=== PATIENT | female | born 1940 | race Caucasian/White ===

== ENCOUNTER 2019-06-16 10:03 | Emergency (ER) | payer OTHER ==
[2019-06-16 10:48] LABS: Absolute Lymphocytes (CBC) 1.2 K/uL (0.7-4.9); Basophils % 1.3 % (0-1.3); Hematocrit 33.7 % (36.0-45.0); Lymphocytes % 21.2 % (15.3-44.8); MPV 7.3 fL (7.6-11.3); RBC Red Blood Cell Count 3.71 M/uL (3.86-4.86)
[2019-06-16 11:05] LABS: Albumin 3.4 g/dL (3.4-5.0); Bilirubin Total 0.5 mg/dL (0.2-1.0); Potassium 3.9 mmol/L (3.5-5.1); Protein, Total 6.8 g/dL (6.4-8.2); Uric Acid 7.5 mg/dL (2.6-6.0)
--- NOTE | 2019-06-16 11:50 | RAD REPORT ---
EXAM DESCRIPTION: RAD - Foot Left 3 View - 06/16/2019 10:47 am CLINICAL HISTORY: Left foot pain and swelling, pain primarily first toe COMPARISON: None. FINDINGS: No fracture, dislocation or periosteal reaction. No destructive bone process. 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 There is joint space narrowing at this joint as well as large lateral marginal spurs. No erosive component. Soft tissues around the first MTP joint a re mildly prominent. The second- fifth MTP joints and the IP joint show no significant degenerative change. There is mild degenerative change at the cuneiform bone articulations with the second- fifth metatarsals. Moderate- sized plantar spur is present. There is small spurring at the Achilles attachment. Patient has soft t issue swelling over the dorsum of the foot. No air or foreign body in the soft tissues. 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 Mild degenerative changes elsewhere in the foot. Swelling over the dorsum of the foot with no air or foreign body.
[2019-06-16] MEDS ORDERED: dexAMETHasone 10 MG/ML VIAL ONE (12:58)
--- NOTE | 2019-06-16 13:02 | EDPHYS ---
Physician Documentation [facility] Name: Karla Saunders Age: 78 yrs Sex: Female : 1940 Arrival Date: 06/16/2019 Time: 10:06 Bed 20 Private MD: ED Physician Taz Bush HPI: 06/16 10:23 This 78 yrs old Female presents to ER via Ambulatory with complaints of Toe jmm Pain. 10:23 The patient presents with pain, that is acute. Onset: The symptoms/episode jmm began/occurred gradually, 1 week(s) ago. Modifying factors: The symptoms are alleviated by ice packs, the symptoms are aggravated by movement. This is a 78 year old female with a history of htn that presents to the ED with complaints of left foot pain. Patient states pain began after her massaged her foot. Patient unaware of any other possible injury. Patient denies fever or chills. . Historical: - Allergies: 10:17 No Known Allergies; tw2 - Home Meds: 10:17 hydrochlorothiazide 12.5 mg Oral cap 1 cap once daily [Active]; pantoprazole 40 mg oral tw2 TbEC 1 tab once daily [Active]; lisinopril 40 mg Oral tab 1 tab once daily [Active]; metoprolol tartrate 100 mg Oral tab 1 tab once daily [Active]; - PMHx: 10:17 Hypertension; tw2 - Immunization history:: Adult Immunizations. - Social history:: Smoking status: . - Ebola Screening: : Patient denies travel to an Ebola-affected area in the 21 days before illness onset. ROS: 10:23 Constitutional: Negative for fever, chills, and weight loss, Cardiovascular: Negative jmm for chest pain, palpitations, and edema, Respiratory: Negative for shortness of breath, cough, wheezing, and pleuritic chest pain. 10:23 MS/extremity: Positive for injury or acute deformity, pain. 10:23 All other systems are negative. Exam: 10:23 Constitutional: This is a well developed, well nourished patient who is awake, alert, jmm and in no acute distress. Head/Face: atraumatic. Eyes: EOMI, no conjunctival erythema appreciated ENT: Moist Mucus Membranes Neck: Trachea midline, Supple Chest/axilla: Normal chest wall appearance and motion. Cardiovascular: Regular rate and rhythm. No edema appreciated Respiratory: Normal respirations, no respiratory distress appreciated Abdomen/GI: Non distended, soft Back: Normal ROM 10:23 Musculoskeletal/extremity: full dorsalis pedis pulse noted to the left foot, pain on palpation of the left mtp, NVI. 10:23 Skin: erythema noted to the left foot. insect bite noted at the MTP joint. 10:23 Neuro: Orientation: is normal, Mentation: is normal, Memory: is normal. 10:23 Psych: Behavior/mood is pleasant, cooperative. Vital Signs: 10:16 BP 175 / 80; Pulse 83; Resp 17; Temp 97.4(TE); Pulse Ox 95% on R/A; Weight 77.11 kg tw2 (R); Height 5 ft. 2 in. (157.48 cm) (R); Pain 7/10; 11:15 BP 163 / 74; Pulse 63; Resp 17; Pulse Ox 96% on R/A; tw2 12:13 BP 156 / 77; Pulse 65; Resp 17; Temp 97.7(TE); Pulse Ox 97% ; mh5 13:13 BP 153 / 66; Pulse 61; Resp 17; Pulse Ox 97% on R/A; tw2 10:16 Body Mass Index 31.09 (77.11 kg, 157.48 cm) tw2 MDM: 10:16 Patient medically screened. kwame 12:58 Data reviewed: vital signs, nurses notes. Counseling: I had a detailed discussion with tai the patient and/or guardian regarding: the historical points, exam findings, and any diagnostic results supporting the discharge/admit diagnosis, lab results, radiology results, the need for outpatient follow up, to return to the emergency department if symptoms worsen or persist or if there are any questions or concerns that arise at home. ED course: Gout appears more likely than cellulitis. Patient is afebrile. No leukocytosis. Uric acid is elevated. Patient is alert and non toxic in appearance in the ED. I discussed with the patient the need for close follow up. Patient was otherwise given strict return precautions. Patient understood and agrees with the plan of care. . 06/16 10:22 Order name: CBC with Diff [facility] 06/16 10:22 Order name: CMP [facility] 06/16 10:22 Order name: Uric Acid [facility] 09/06 10:50 Order name: CBC with Automated Diff; Complete Time: 10:56 [facility] 06/16 11:06 Order name: Comprehensive Metabolic Panel; Complete Time: 11:08 [facility] 06/16 11:06 Order name: Uric Acid; Complete Time: 11:08 [facility] 06/16 10:22 Order name: Foot Right 3 View XRAY [facility] 06/16 10:23 Order name: Foot Left 3 View XRAY [facility] 06/16 12:17 Order name: RAD; Complete Time: 12:20 [facility] 06/16 12:43 Order name: Orthopedic shoe; Complete Time: 13:04 [facility] Administered Medications: 13:04 Drug: Decadron 10 mg Route: IM; Site: right deltoid; tw2 13:13 Follow up: Response: No adverse reaction tw2 Disposition: 15:51 Co-signature as Attending Physician, Taz Bush MD I agree with the assessment and kwame plan of care. Disposition: 06/16/19 13:01 Discharged to Home. Impression: Gout. - Condition is Stable. - Discharge Instructions: Gout. - Medication Reconciliation Form, Thank You Letter, Antibiotic Education, Prescription Opioid Use form. - Follow up: Private Physician; When: 2 - 3 days; Reason: Recheck today's complaints, Continuance of care, Re-evaluation by your physician. Signatures: Dispatcher [employer] Taz Manning MD MD cha Mickail, Joel, PA PA Lee Ann Cheung, RN RN tw2 Corrections: (The following items were deleted from the chart) 13:14 13:01 06/16/2019 13:01 Discharged to Home. Impression: Gout. Condition is Stable. Forms tw2 are Medication Reconciliation Form, Thank You Letter, Antibiotic Education, Prescription Opioid Use. Follow up: Private Physician; When: 2 - 3 days; Reason: Recheck today's complaints, Continuance of care, Re-evaluation by your physician. [email or web address]
--- NOTE | 2019-06-16 13:02 | ER ---
Nurse's Notes [facility] Name: Karla Saunders Age: 78 yrs Sex: Female : 1940 Arrival Date: 06/16/2019 Time: 10:06 Bed 20 Private MD: Diagnosis: Gout Presentation: 06/16 10:15 Presenting complaint: Patient states: i have been having toe pain and redness in my tw2 LEFT great toe x1 week, i dont know if it is gout or not, i havent had it before. Transition of care: patient was not received from another setting of care. Onset of symptoms was June 16, 2019. Risk Assessment: Do you want to hurt yourself or someone else? Patient reports no desire to harm self or others. Initial Sepsis Screen: Does the patient meet any 2 criteria? No. Patient's initial sepsis screen is negative. Does the patient have a suspected source of infection? No. Patient's initial sepsis screen is negative. Care prior to arrival: None. 10:15 Method Of Arrival: Ambulatory tw2 10:15 Acuity: SILVIA 4 tw2 Triage Assessment: 10:15 General: Appears in no apparent distress. obese, Behavior is calm, cooperative, tw2 appropriate for age. Pain: Complains of pain in left first toe. Historical: - Allergies: 10:17 No Known Allergies; tw2 - Home Meds: 10:17 hydrochlorothiazide 12.5 mg Oral cap 1 cap once daily [Active]; pantoprazole 40 mg oral tw2 TbEC 1 tab once daily [Active]; lisinopril 40 mg Oral tab 1 tab once daily [Active]; metoprolol tartrate 100 mg Oral tab 1 tab once daily [Active]; - PMHx: 10:17 Hypertension; tw2 - Immunization history:: Adult Immunizations. - Social history:: Smoking status: . - Ebola Screening: : Patient denies travel to an Ebola-affected area in the 21 days before illness onset. Screenin:16 Abuse screen: Denies threats or abuse. Nutritional screening: No deficits noted. tw2 Tuberculosis screening: No symptoms or risk factors identified. Fall Risk Secondary diagnosis (15 points) impaired mobility. Assessment: 10:10 General: Appears in no apparent distress. obese, Behavior is calm, cooperative, tw2 appropriate for age. Pain: Complains of pain in left foot and left first toe. Neuro: Level of Consciousness is awake, alert, obeys commands, Oriented to person, place, time, situation. Cardiovascular: Heart tones S1 S2 Capillary refill < 3 seconds Patient's skin is warm and dry. Respiratory: Airway is patent Respiratory effort is even, unlabored, Respiratory pattern is regular, symmetrical, Breath sounds are clear bilaterally. GI: No signs and/or symptoms were reported involving the gastrointestinal system. : No signs and/or symptoms were reported regarding the genitourinary system. EENT: No signs and/or symptoms were reported regarding the EENT system. Derm: erythema and edema noted to left great toe. Musculoskeletal: Circulation, motion, and sensation intact. 11:15 Reassessment: Patient appears in no apparent distress at this time. No changes from tw2 previously documented assessment. Patient and/or family updated on plan of care and expected duration. Pain level reassessed. Patient is alert, oriented x 3, equal unlabored respirations, skin warm/dry/pink. 12:15 Reassessment: Patient appears in no apparent distress at this time. No changes from tw2 previously documented assessment. Patient and/or family updated on plan of care and expected duration. Pain level reassessed. Patient is alert, oriented x 3, equal unlabored respirations, skin warm/dry/pink. 13:14 Reassessment: Patient appears in no apparent distress at this time. No changes from tw2 previously documented assessment. Patient and/or family updated on plan of care and expected duration. Pain level reassessed. Patient is alert, oriented x 3, equal unlabored respirations, skin warm/dry/pink. Vital Signs: 10:16 BP 175 / 80; Pulse 83; Resp 17; Temp 97.4(TE); Pulse Ox 95% on R/A; Weight 77.11 kg tw2 (R); Height 5 ft. 2 in. (157.48 cm) (R); Pain 7/10; 11:15 BP 163 / 74; Pulse 63; Resp 17; Pulse Ox 96% on R/A; tw2 12:13 BP 156 / 77; Pulse 65; Resp 17; Temp 97.7(TE); Pulse Ox 97% ; mh5 13:13 BP 153 / 66; Pulse 61; Resp 17; Pulse Ox 97% on R/A; tw2 10:16 Body Mass Index 31.09 (77.11 kg, 157.48 cm) tw2 ED Course: 10:06 Patient arrived in ED. as 10:10 Bed in low position. Call light in reach. tw2 10:15 Iron Linda PA is PHCP. tai 10:15 Taz Bush MD is Attending Physician. [facility] 10:15 Lee Ann Bland, EFRAIN is Primary Nurse. tw2 10:16 Triage completed. tw2 10:16 Arm band placed on. tw2 10:34 Initial lab(s) drawn, by nh, sent to lab. Inserted saline lock: 20 gauge in right ms antecubital area, using aseptic technique. Blood collected. 10:53 Uric Acid Sent. 5 10:53 CMP Sent. [facility] 10:53 CBC with Diff Sent. 5 13:14 No provider procedures requiring assistance completed. IV discontinued, intact, tw2 bleeding controlled, No redness/swelling at site. Pressure dressing applied. Administered Medications: 13:04 Drug: Decadron 10 mg Route: IM; Site: right deltoid; tw2 13:13 Follow up: Response: No adverse reaction tw2 Outcome: 13:01 Discharge ordered by . [facility] 13:14 Discharged to home ambulatory, with family. tw2 13:14 Condition: stable 13:14 Discharge instructions given to patient, family, Instructed on discharge instructions, follow up and referral plans. safety practices, Demonstrated understanding of instructions, follow-up care. 13:14 Patient left the ED. tw2 Signatures: Iron Linda PA PA jmm Martinez, Amelia as Solis, Maria co Lee Ann Bland RN RN tw2 Fanta Villarreal [facility]
== END 2019-06-16 13:14 | disposition home or self-care (01) ==
LOC: ER 10:03
DX: M10.9 Gout, unspecified (principal); I10 Essential (primary) hypertension
CPT/HCPCS: 85025; 36415; 84550; 80053; 73630; 96372; 99284; J1100